=== PATIENT | female | born 1960 ===

== ENCOUNTER 2016-08-21 16:57 | Emergency (ER) | payer MEDICARE, MEDICAID ==
[2016-08-21 16:58] VITALS: PULSE 80
[2016-08-21 17:08] VITALS: BP 166/78; PULSE 98; RESP 16; TEMP 98.4; O2SAT 98
--- NOTE | 2016-08-21 18:19 | ED PDOC ---
HPI: General Adult Time Seen by Provider: 08/21/16 17:08 Chief Complaint (Nursing): ENT Problem Chief Complaint (Provider): Left-sided throat pain History Per: Patient Onset/Duration Of Symptoms: Days (x8 days) Current Symptoms Are (Timing): Still Present Additional Complaint(s): 56 y/o female presents to the emergency department with a complaint of a left- sided throat pain after eating chicken about 8 days ago and possibly swallowing a bone. She reports pain with swallowing but she is tolerating solids and liquids without vomiting. Patient did not seek medical attention the day of symptom onset. She denies any chest pain, shortness of breath or dyspnea on exertion. PMD: Dr. Kayy Junior MD Past Medical History Reviewed: Historical Data, Nursing Documentation, Vital Signs Vital Signs: Last Vital Signs Temp 98.4 F 08/21/16 17:05 Pulse 98 H 08/21/16 17:05 Resp 16 08/21/16 17:05 BP 166/78 H 08/21/16 17:05 Pulse Ox 98 08/21/16 18:25 - Medical History PMH: Anxiety, Asthma, Diabetes, GERD, HTN, Hypercholesterolemia - Surgical History Surgical History: Hernia Repair Other surgeries: hysterectomy - Family History Family History: States: No Known Family Hx - Living Arrangements Living Arrangements: With Family - Social History Current smoker - smoking cessation education provided: No Alcohol: None Drugs: Denies - Home Medications Home Medications: Ambulatory Orders Medication Instructions Recorded Acetaminophen [Tylenol] 650 mg PO BID PRN 11/03/15 Dabigatran [Pradaxa] 150 mg PO BID 11/03/15 Folic Acid 1 mg PO DAILY 11/03/15 Losartan [Cozaar] 50 mg PO DAILY 11/03/15 Meloxicam [Mobic] 1 tab PO DAILY PRN 11/03/15 Pantoprazole [Protonix EC Tab] 40 mg PO DAILY 11/03/15 Pravastatin Sodium [Pravachol] 40 mg PO HS 11/03/15 Primidone 2 tab PO BID 11/03/15 Ranitidine HCl [Ranitidine 150] 150 mg PO DAILY 11/03/15 Sucralfate [Carafate] 1 gm PO DAILY 11/03/15 diltiaZEM CD [Cardizem CD] 180 mg PO DAILY 11/03/15 metFORMIN [glucOPHAGE] 500 mg PO DAILY 11/03/15 - Allergies Allergies/Adverse Reactions: Allergies Allergy/AdvReac Type Severity Reaction Status Date / Time No Known Allergies Allergy Verified 08/21/16 17:04 Review of Systems ROS Statement: Except As Marked, All Systems Reviewed And Found Negative Constitutional: Negative for: Fever ENT: Positive for: Throat Pain (left side throat pain for 8 days s/p possibly swallowing chicken bone). Negative for: Throat Swelling Cardiovascular: Negative for: Chest Pain Respiratory: Negative for: Shortness of Breath, SOB with Exertion Gastrointestinal: Negative for: Nausea, Vomiting Physical Exam - Reviewed Nursing Documentation Reviewed: Yes Vital Signs Reviewed: Yes - Physical Exam Appears: Positive for: Non-toxic, No Acute Distress Head Exam: Positive for: ATRAUMATIC, NORMAL INSPECTION, NORMOCEPHALIC Skin: Positive for: Normal Color, Warm, Dry ENT: Positive for: Pharynx Is (Clear.). Negative for: Nasal Congestion, Pharyngeal Erythema, Tonsillar Exudate, Tonsillar Swelling, Other (No visible foreign body to the posterior pharynx) Cardiovascular/Chest: Positive for: Regular Rate, Rhythm. Negative for: Murmur Respiratory: Negative for: Normal Breath Sounds, Accessory Muscle Use, Respiratory Distress Neurologic/Psych: Positive for: Alert, Oriented - ECG O2 Sat by Pulse Oximetry: 98 (RA) Pulse Ox Interpretation: Normal Medical Decision Making Medical Decision Making: Time: 17:08 Initial Impression: 56 y/o female with possible foreign body to throat Patient is in no distress. She is tolerating liquids and solids since injury occurred 8 days ago. Patient was referred to ENT interventional cardiologist and was advised to follow up as soon as possible for further evaluation. Advised NSAID's for pain prn. Scribe Attestation: Documented by Charo Flor, acting as a scribe for Gianna Ramírez PA-C. Provider Scribe Attestation: All medical record entries made by the Scribe were at my direction and personally dictated by me. I have reviewed the chart and agree that the record accurately reflects my personal performance of the history, physical exam, medical decision making, and the department course for this patient. I have also personally directed, reviewed, and agree with the discharge instructions and disposition. Disposition - Clinical Impression Clinical Impression: Foreign body sensation in throat - Patient ED Disposition Is Patient to be Admitted: No Counseled Patient/Family Regarding: Diagnosis, Need For Followup - Disposition Referrals: Christiano Hernandez MD [Staff Provider] - Kayy Junior MD [Family Provider] - Disposition: Routine/Home Disposition Time: 18:26 Condition: STABLE Additional Instructions: Tylenol for pain as needed. Call ear, nose and throat specialist to make an appointment for follow up or contact primary care doctor for ear, nose and throat referral. Instructions: Foreign Body in Pharynx (ED) Print Language: IRISH
== END 2016-08-21 19:25 | disposition home or self-care (01) ==
LOC: H.ER 16:57
DX: R09.89 Other specified symptoms and signs involving the circulatory and respiratory systems (principal)